=== PATIENT | female | born 1985 | race Two or more races ===

== ENCOUNTER 2024-10-10 08:58 | Outpatient (CLI) | payer OTHER | END 2024-10-10 09:06 | disposition home or self-care (01) | LOC: SONOGRAMA 08:58 | PROVIDERS: ATTEND Obstetrics & Gynecology | DX: N84.0 Polyp of corpus uteri (principal) ==

== ENCOUNTER 2025-09-15 11:06 | Outpatient (CLI) | payer OTHER | END 2025-09-15 12:06 | disposition home or self-care (01) | LOC: NST 11:06 | PROVIDERS: ATTEND Obstetrics & Gynecology | DX: Z34.83 Encounter for supervision of other normal pregnancy, third trimester (principal) ==

== ENCOUNTER 2025-10-09 15:20 | Outpatient (CLI) | payer OTHER | END 2025-10-09 15:44 | disposition home or self-care (01) | LOC: NST 15:20 | PROVIDERS: ATTEND Obstetrics & Gynecology Maternal & Fetal Medicine | DX: Z34.83 Encounter for supervision of other normal pregnancy, third trimester (principal) ==

== ENCOUNTER 2025-10-11 09:22 | Outpatient (CLI) | payer OTHER | END 2025-10-11 10:20 | disposition home or self-care (01) | LOC: NST 09:22 | PROVIDERS: ATTEND Obstetrics & Gynecology | DX: Z34.83 Encounter for supervision of other normal pregnancy, third trimester (principal) ==

== ENCOUNTER 2025-10-23 12:09 | Outpatient (CLI) | payer OTHER | END 2025-10-23 12:55 | disposition home or self-care (01) | LOC: NST 12:09 | PROVIDERS: ATTEND Obstetrics & Gynecology Gynecology | DX: Z34.83 Encounter for supervision of other normal pregnancy, third trimester (principal) ==

== ENCOUNTER 2025-11-01 09:57 | Outpatient (CLI) | payer OTHER | END 2025-11-01 11:44 | disposition home or self-care (01) | LOC: NST 09:57 | PROVIDERS: ATTEND Obstetrics & Gynecology Gynecology | DX: Z34.83 Encounter for supervision of other normal pregnancy, third trimester (principal) ==